=== PATIENT | male | born 1970 ===

== ENCOUNTER 2022-01-09 13:49 | Emergency (ER) | payer BC, SELFPAY ==
--- NOTE | ~2022-01-09 | XR_ITS ---
EXAM: XR elbow LT min 3V DATE: 01/09/2022 14:36 HISTORY: redness/SWELLING MEDIALLY AND POSTERIORLY, NO INJURY . COMPARISON: None available. FINDINGS: Normal mineralization. No fracture or dislocation. No lytic or blastic lesion. Joint space s and physes are maintained. No erosion or periosteal change. Posterior soft tissue swelling over the olecranon. IMPRESSION: No acute osseous finding the left elbow. Soft tissue swelling over the olecranon. . Reviewed, dictated and finalized at location [facility].
[2022-01-09 14:18] VITALS: BP 116/70; PULSE 93; RESP 16; TEMP 36.4; O2SAT 98
[2022-01-09 14:55] LABS: Basophils Absolute Auto 0.1 K/mm3 (0.0-0.1); Basophils Percent Auto 0.5 % (0.2-1.2); Eosinophils Absolute Auto 0.2 K/mm3 (0-0.3); Eosinophils Percent Auto 1.4 % (0-4.4); Hematocrit 46.6 % (42.0-52.0); Hemoglobin 15.1 g/dL (14.0-18.0); Immature Granulocyte Absolute 0.06 K/mm3 (0.00-0.031); Immature Granulocyte Percent A 0.5 % (0-0.5); Lymphocytes Absolute Auto 1.55 K/mm3 (0.9-3.2); Lymphocytes Percent Auto 11.8 % (18.3-44.2); Mean Corpuscular HGB Conc 32.4 g/dl (32-36); Mean Corpuscular Hemoglobin 30.1 pg (26-34); Mean Corpuscular Volume 92.8 fl (80-100); Mean Platelet Volume 9.9 fl (7.4-10.4); Monocytes Percent Auto 7.8 % (2.6-8.5); Neutrophils Absolute Auto 10.2 K/mm3 (1.3-6.7); Platelet Count Result 293 k/mm3 (150-375); Red Blood Count 5.02 M/mm3 (4.6-6.20); White Blood Count 13.1 K/mm3 (4.5-10.0)
[2022-01-09 15:03] LABS: Alanine Aminotransferase 32 U/L (6-50); Albumin Level 4.4 g/dL (3.5-5.1); Alkaline Phosphatase 72 U/L (38-126); Anion Gap 14 mmol/L (8-16); Aspartate Amino Transferase 41 U/L (17-59); Bilirubin,Total 0.6 mg/dL (0.2-1.3); Blood Urea Nitrogen 23 mg/dL (9-20); Calcium 8.7 mg/dL (8.4-10.2); Carbon Dioxide 23 mmol/L (22-30); Chloride 105 mmol/L (98-107); Estimated CRCL calculation 81 ml/min; Estimated Glomerular Filt Rate > 60; Glucose 88 mg/dL (65-110); Potassium 4.5 mmol/L (3.4-5.0); Sodium 142 mmol/L (137-145)
--- NOTE | 2022-01-09 15:59 | ED.UPPEXIN ---
HPI - Extremity Injury (Upper) General Chief Complaint: Extremity Injury, Upper Stated Complaint: rt elbow possible osteo per pcp Time Seen by Provider: 01/09/22 15:34 History of Present Illness HPI narrative: Pt noticed redness and swelling over left elbow over the last coupl eof days and the redness has spread. Pt had a area of infection in his left hand recently and his PCP is concerned that the infection may have spread to his elbow joint so sent him to ER. Pt denies injury or repetitive use of elbow. Related Data Home Medications Medication Instructions Recorded Confirmed lisinopril 20 mg tablet 20 mg PO DAILY 01/09/22 Allergies Allergy/AdvReac Type Severity Reaction Status Date / Time No Known Allergies Allergy Mild Verified 01/09/22 14:20 Review of Systems Review of Systems: All systems reviewed & are unremarkable except as noted in HPI and below Exam Const: General: healthy appearing Nutritional Appearance: well nourished Orientation/consciousness: patient oriented x3 Limitations: no limitations Resp: Effort & Inspection: normal respiratory effort Cardio: Rate: regular rate Rhythm: regular rhythm GI: GI Palp: Yes Soft to palpation Auscultation: normal bowel sounds Skin: Other: erythema over olecrenon bursa no obvious joint effusion and good ROM of left elbow, no bony tenderness only over bursa Neuro: General: patient oriented x3, moves all extremities and no focal motor deficits Extrem: Other: erythema and swelling over oloecrenon bursa Psych: Mental Status: mental status grossly normal Affect: normal affect Attitude: cooperative Course Course Emergency Course: discussed with patient findings and low likelihood of osteo at this point, pt not able to take NSAIDS since gastric bypass, will start on some antibiotics and pt will get elbow brace at pharmacy and try to limit use and will follow up Vital Signs Vital signs: Vital Signs Temperature 97.6 F 01/09/22 14:18 Pulse Rate 93 01/09/22 14:18 Respiratory Rate 16 01/09/22 14:18 Blood Pressure 116/70 01/09/22 14:18 Pulse Oximetry 98 01/09/22 14:18 Oxygen Delivery Room Air 01/09/22 14:18 Temperature 97.6 F 01/09/22 14:18 Pulse Rate 90 01/09/22 16:26 Respiratory Rate 16 01/09/22 16:26 Blood Pressure 112/74 01/09/22 16:26 Pulse Oximetry 100 01/09/22 16:26 Oxygen Delivery Room Air 01/09/22 14:18 MDM - Extremity Injury (Upper) Lab Data Result diagrams: 01/09/22 14:50 01/09/22 14:50 Labs: Lab Results 01/09/22 01/09/22 01/09/22 Range/Units 14:42 14:50 14:50 WBC 13.1 H (4.5-10.0) K/mm3 RBC 5.02 (4.6-6.20) M/mm3 Hgb 15.1 (14.0-18.0) g/dL Hct 46.6 (42.0-52.0) % MCV 92.8 (80-100) fl MCH 30.1 (26-34) pg MCHC 32.4 (32-36) g/dl RDW 12.0 (11.5-14.5) % Plt Count 293 (150-375) k/mm3 MPV 9.9 (7.4-10.4) fl Immature Gran % (Auto) 0.5 (0-0.5) % Neut % (Auto) 78.0 H (45.5-73.1) % Lymph % (Auto) 11.8 L (18.3-44.2) % Rock % (Auto) 7.8 (2.6-8.5) % Eos % (Auto) 1.4 (0-4.4) % Baso % (Auto) 0.5 (0.2-1.2) % Lymph # (Auto) 1.55 (0.9-3.2) K/mm3 Rock # (Auto) 1.0 H (0.1-0.6) K/mm3 Eos # (Auto) 0.2 (0-0.3) K/mm3 Baso # (Auto) 0.1 (0.0-0.1) K/mm3 Abs Immat Gran (auto) 0.06 H (0.00-0.031) K/mm3 Absolute Neuts (auto) 10.2 H (1.3-6.7) K/mm3 Absolute Nucleated RBC 0.0 (0.0-0.012) K/mm3 Nucleated RBC % 0.0 (0.0-0.2) % ESR 10 (0-20) mm/hr Sodium 142 (137-145) mmol/L Potassium 4.5 (3.4-5.0) mmol/L Chloride 105 (98-107) mmol/L Carbon Dioxide 23 (22-30) mmol/L Anion Gap 14 (8-16) mmol/L BUN 23 H (9-20) mg/dL Creatinine 1.00 (0.7-1.3) mg/dL Estim Creat Clear Calc 81 ml/min Estimated GFR > 60 (59 - ) Glucose 88 (65-110) mg/dL Calcium 8.7 (8.4-10.2) mg/dL Total Bilirubin 0.6 (0.2-1.3) mg/dL AST 41 (1
[2022-01-09 16:26] VITALS: BP 112/74; PULSE 90; RESP 16; O2SAT 100
--- NOTE | 2022-01-09 16:26 | PC.NURSE ---
ok per Dr. Hamilton to discharge patient prior to receiving lab results
[2022-01-09 16:50] LABS: Erythrocyte Sedimentation Rate 10 mm/hr (0-20)
== END 2022-01-09 16:27 | disposition home or self-care (01) ==
PROVIDERS: Emergency Medicine; Emergency Provider Emergency Medicine
DX: M70.22 Olecranon bursitis, left elbow (principal)
CPT/HCPCS: 36415; 73080; 80053; 85025; 85652; 99283